=== PATIENT | male | born 1995 | race Caucasian/White ===

== ENCOUNTER 2017-06-11 01:18 | Inpatient (IN) | payer BC ==
[~2017-06-11] VITALS: Ht 175.3 cm; Wt 117.7 kg
--- NOTE | ~2017-06-11 | OR ---
PATIENT'S NAME: ROSENDO RODRIGEZ [facility] AGE: 21 Y [address] ROOM: [address] [address] [place] [facility] [place] DATE: 06/11/2017 OR/Procedure Report DISCHARGE DATE: FAMILY PHYSICIAN: Víctor Kearns MD ATTENDING PHYSICIAN: Rhys GUEVARA SURGEON: Rhys Guevara MD HAND SURGEON: DATE OF PROCEDURE: 06/11/2017 PREOPERATIVE DIAGNOSIS: Acute appendicitis. POSTOPERATIVE DIAGNOSIS: Acute appendicitis with periappendiceal abscess. PROCEDURE PERFORMED: Laparoscopic appendectomy. ANESTHESIA: General endotracheal anesthesia. COMPLICATIONS: None. SPECIMEN: Appendix. ESTIMATED BLOOD LOSS: 10 mL. COUNTS: The sponge and needle count at the end of the case was correct. DESCRIPTION OF PROCEDURE: After informed consent was obtained, the patient was taken to the operating room and intubated. A Alberto catheter was placed. His anterior abdominal wall was sterilely prepped and draped. Surgical time- out was performed. Veress needle technique was used to create a pneumoperitoneum. A 5 mm port and 5 mm camera were placed through the infraumbilical stab incision. No injury to subjacent bowel was identified. A 5 mm suprapubic port and an 11 mm left lower quadrant port were placed under camera visualization. The appendix was identified in the right lower quadrant. There was periappendiceal abscess, which was quite small. This was dissected free using blunt dissection from the abdominal wall and the cecum and the adjacent ligament of Treves. The mesoappendix was divided with a Harmonic scalpel. The base of the appendix was uninvolved with disease and fit to handle suture. The base of the appendix was ligated with PDS Endoloop x2. The appendix was transected with the Harmonic scalpel and extracted through the left lower quadrant port using an EndoCatch bag. Copious irrigation of the pelvis, right lower quadrant, and above the liver was performed. The ports were removed. The fascia of the 11 mm port was closed with vicryl. Monocryl and dermabond were used for all incisions. Drapes were removed. The Alberto catheter was removed. The patient was extubated and taken to the postanesthesia care unit in stable condition. PATIENT'S NAME: ROSENDO RODRIGEZ [facility] AGE: 21 Y [address] ROOM: [address] [address] [place] [facility] [place] DATE: 06/11/2017 OR/Procedure Report DISCHARGE DATE: FAMILY PHYSICIAN: Víctor Kearns MD ATTENDING PHYSICIAN: Rhys GUEVARA RHYS GUEVARA MD CM/luis alberto /[id number] d: 06/11/17740 t: 06/15/17 0731, OPERATIVE SUMMARY
--- NOTE | ~2017-06-11 | ER ---
[facility] AGE[facility] 21 Y [address] ROOM: [place] [address] LOCATION: [facility] ADMIT DATE: 06/11/2017 ER/Outpatient Report DISCHARGE DATE: FAMILY PHYSICIAN: Víctor Kearns MD ATTENDING PHYSICIAN: Jason Thomas Admission date and time are documented in the medical record. I saw the patient at 0130 hours. CHIEF COMPLAINT: Generalized abdominal pain. HISTORY OF PRESENT ILLNESS: The patient is a 21-year-old male, who comes in with generalized abdominal pain, seemed to be worse in the left mid quadrant. He has had the pain for about 2 to 3 days. The pain has been constant. It got worse this morning and brought him into the emergency room for evaluation. He has had multiple diarrhea stools. He has had nausea and vomiting x3 today. No urinary symptomatology. No back pain, chest pain, or shortness of breath. No lightheadedness, dizziness, syncope, or near syncope. No fall or trauma. Other than the abdominal pain, no recent coughs, colds, or flus. Does have a fever, no chills. No headache, eyes, ears, nose, throat, neck, or spine pain. No joint or muscle swelling, redness, or pain. No skin eruptions or rash. No history of neuro changes, psych issues, or endocrine problems. HOME MEDICATIONS: Ibuprofen p.r.n. ALLERGIES: NONE. SOCIAL HISTORY: The patient smokes tobacco, a pack a day. Does use marijuana. Does use alcohol. SIGNIFICANT PAST MEDICAL HISTORY: Asthma, tobacco abuse, and marijuana use. PAST SURGICAL HISTORY: Tonsillectomy and left knee surgery. REVIEW OF SYSTEMS: All systems reviewed by me are negative with the exception of those discussed in the history of present illness. PATIENT'S NAME: ELIA [facility] AGE: 21 Y [address] ROOM: [place] [address] LOCATION: [facility] ADMIT DATE: 06/11/2017 ER/Outpatient Report DISCHARGE DATE: FAMILY PHYSICIAN: Víctor Kearns MD ATTENDING PHYSICIAN: Jason Thomas PHYSICAL EXAMINATION: VITAL SIGNS: Temperature 100.4 tympanic, pulse 90, respirations 18, blood pressure 160/75, O2 saturation on room air is 99%. HEAD: Normocephalic. EYES, EARS, NOSE, AND THROAT: Clear. Mucous membranes moist. Teeth, jaw intact. NECK: No nuchal rigidity. No thyromegaly or cervical adenopathy. Range of motion, full. SPINE: Nontender, no deformity. LUNGS: Clear. Good air flow. No rales, rhonchi, or wheezes. HEART: Regular. Pulses are palpable. ABDOMEN: Nondistended. Soft. Tenderness diffusely, especially in the left mid quadrant. No really true guarding or rigidity. No rebound tenderness. No CVA tenderness. EXTREMITIES: Intact. NEUROVASCULAR: Intact. SKIN: Clear. No skin eruptions or rash. LABORATORY DATA: Urine showed 0-2 whites, 0-2 reds, 0-2 epithelial cells, negative bacteria per high-powered field, negative nitrites. White count was elevated at 15,900, 80 segs, 10 lymphs, 9 monos, 1 EO, hemoglobin is 16.1 with hematocrit of 46.0, and platelet count was 240,000. Pro-time was 11.2 with an INR of 1.07. CMS was normal. Amylase and lipase were normal. CRP was 7.59. Did a CT scan of the abdomen and pelvis with IV contrast that showed acute appendicitis with a small abscess likely containing no more than 2 mm of fluid at the tip of the appendix. CT scan was read by radiologist. See dictated transcribed report. EMERGENCY DEPARTMENT COURSE: I did start the patient on IV normal saline, fluids. Gave him Zofran IV for nausea and vomiting and fentanyl IV for pain. IMPRESSION: Acute appendicitis with small abscess at the tip of the appendix with abdominal pain, nausea, vomiting, diarrhea, and fever. PLAN: I did discuss the patient with Dr. Guevara, surgeon. Dr. Guevara is coming to the emergency room to evaluate the patient. We will take the patient back to operation for appendectomy. Discussion ensued with the patient concerning my findings and recommendations, he understands. PATIENT'S NAME: ROSENDO RODRIGEZ [facility] AGE: 21 Y [address] ROOM: [place] [address] LOCATION: [facility] ADMIT DATE: 06/11/2017 ER/Outpatient Report DISCHARGE DATE: FAMILY PHYSICIAN: Víctor Kearns MD ATTENDING PHYSICIAN: Jason Thomas MD SDS/modl /[id number] d: 06/11/17 0415 t: 06/12/17 1804, OUTPATIENT REPORT
--- NOTE | ~2017-06-11 | DS ---
PATIENT'S NAME: ROSENDO RODRIGEZ [facility] AGE: 21 Y [address] ROOM: [address] [address] LOCATION: [facility] [place] ADMIT DATE: 06/11/2017 Discharge Summary DISCHARGE DATE: 06/17/2017 FAMILY PHYSICIAN: Víctor Kearns MD ATTENDING PHYSICIAN: Rhys Guevara PROCEDURE PERFORMED: Laparoscopic appendectomy. COMPLICATIONS: None. HOSPITAL COURSE: The patient was admitted on June 11 from the emergency department with signs and symptoms and radiographic findings consistent with acute appendicitis with focal perforation and periappendiceal abscess. He was taken to the operating room for laparoscopic appendectomy. He was taken postoperatively to the hospital acosta where he was maintained on IV antibiotics for a period of 6 days. On the 6th day, he was transitioned to oral antibiotics. His white count prior to surgery was 15.9. It peaked at 21.8 the day after surgery and continued to progress down and normalized at 9.1 on June 16, 2017. He was tolerating a regular diet. He was ambulating without difficulties. He was able to have good pain control with oral medications. He was transitioned to oral antibiotics the day before discharge. On the day of discharge June 17, he had very good symptom control and no subjective or recorded fevers. He was discharged to outpatient care. The patient will follow up in 5 to 10 days in the [facility] for wound check and overall evaluation. He will have a CBC drawn prior to that clinic visit. He will be maintained on oral antibiotics for another 7 days. RHYS GUEVARA MD CM/luis alberto /[id number] d: 06/18/17 0008 t: 07/16/17 1438, DISCHARGE SUMMARY
--- NOTE | ~2017-06-11 | HP ---
PATIENT'S NAME: ELIA [facility] AGE: 21 Y [address] ROOM: [place] [address] [place] [facility] [place]: 06/11/2017 History & Physical DISCHARGE DATE: FAMILY PHYSICIAN: Víctor Kearns MD ATTENDING PHYSICIAN: Rhys DA SILVA DATE OF SERVICE: CHIEF COMPLAINT: Abdominal pain. HISTORY OF PRESENT ILLNESS: The patient is a 21-year-old, otherwise healthy male who had a 2-day history of initially periumbilical and then right lower quadrant pain. Pain got progressively worse over the last 24 hours associated with some nausea and vomiting with nonbilious emesis. He had very minimal pain control with oral ibuprofen. He presented to the emergency department with the above symptoms in addition to malaise and anorexia. PAST MEDICAL HISTORY: Significant only for asthma requiring no sustained medications. PAST SURGICAL HISTORY: Include tonsillectomy and a knee scope. ALLERGIES: NONE. SOCIAL HISTORY: He is a former smoker. He smoked for about 3 years at about a pack per day. He does have a history of cannabis use. PHYSICAL EXAMINATION: VITAL SIGNS: The patient has a small temperature elevation to 100.4. GENERAL: He is not tachycardic. He is normotensive. HEENT: Shows multiple facial piercings. NECK: Normal. CARDIAC: Normal. PULMONARY: Normal. ABDOMEN: Shows no surgical scars. He has no ventral wall hernia. He has no organomegaly. He has focal tenderness in the right lower quadrant with a positive McBurney's sign and a positive Rovsing sign. EXTREMITIES: His heel tap is positive. His obturator is negative. His pelvic shake is positive. PATIENT'S NAME: ELIA [facility] AGE: 21 Y [address] ROOM: [place] [id number] [place] [facility] [place]: 06/11/2017 History & Physical DISCHARGE DATE: FAMILY PHYSICIAN: Víctor Kearns MD ATTENDING PHYSICIAN: Rhys DA SILVA LABORATORY DATA: His white count is elevated at 15. His CT scan images and radiology interpretation were reviewed. Of note, it shows findings consistent with appendicitis as well as a small abscess at the tip with a small focus of air within it. This appears to be a contained abscess. There is some apparently reactive free fluid in the pelvis. IMPRESSION: Acute appendicitis with a small tip abscess. PLAN: In discussion with the patient, the plan will be to proceed with laparoscopic appendectomy. This will be followed by inpatient admission. My plan would be to keep him on antibiotics for a little longer course given the presence of the small abscess and the increase likelihood of developing subsequent intraabdominal abscesses. Surgical options include nonoperative management with IV antibiotics, but I think in this case that is the lesser of two options. RHYS DA SILVA MD CM/luis alberto /[id number] D: [id number] T: [id number] HISTORY & PHYSICAL
[2017-06-11 02:08] LABS: BASOPHIL % 0.2 %; EOSINOPHIL # 0.1 K/uL (0.0-0.5); EOSINOPHIL % 0.5 %; HEMOGLOBIN 16.1 g/dL (12.0-17.0); IMMATURE GRANULOCYTE # 0.1 K/uL (0.0-0.3); IMMATURE GRANULOCYTE % 0.4 %; LYMPHOCYTE # 1.6 K/uL (0.8-4.0); LYMPHOCYTE % 9.9 %; MCH 30.7 pg (27.0-34.0); MCV 87.6 fl (83.0-98.0); MONOCYTE # 1.4 K/uL (0.0-1.0); MONOCYTE % 8.6 %; MPV 10.2 fl (9.4-12.4); NEUTROPHIL # (ANC) 12.8 K/uL (1.4-9.0); NEUTROPHIL % 80.4 %; NRBC % 0 /100WBC (0-0.00); PLATELET COUNT 240 K/uL (150-450); RBC 5.25 M/uL (4.00-6.00); RDW-CV 13.4 % (11.9-14.6); WBC 15.9 K/uL (4.0-11.0)
[2017-06-11 02:13] LABS: BILIRUBIN URINE NEGATIVE (NEGATIVE); BLOOD URINE NEGATIVE /UL (NEGATIVE); COLOR URINE YELLOW (YELLOW); GLUCOSE URINE NEGATIVE (NEGATIVE); KETONE URINE NEGATIVE (NEGATIVE); LEUKOCYTES URINE 25 /UL (NEGATIVE); NITRITE URINE NEGATIVE (NEGATIVE); PROTEIN URINE NEGATIVE (NEGATIVE); TURBIDITY URINE CLEAR (CLEAR); UROBILINOGEN URINE NORMAL (NORMAL)
[2017-06-11 02:25] LABS: ALBUMIN 3.6 gm/dL (3.5-5.0); ALK PHOS 100 IU/L (33-138); ALT 26 IU/L (12-78); ANION GAP 11.8 (10.0-19.0); AST 12 IU/L (10-40); BLOOD UREA NITROGEN 7 mg/dL (6-24); CALCIUM 8.9 mg/dL (8.5-10.5); CHLORIDE 105 mMol/L (96-110); CO2 24 mMol/L (22-32); CREATININE 0.8 mg/dL (0.6-1.3); POTASSIUM 3.8 mMol/L (3.7-5.1); SODIUM 137 mMol/L (135-145); TOTAL BILIRUBIN 1.1 mg/dL (0.0-1.5); TOTAL PROTEIN 7.5 g/dL (6.0-8.4)
[2017-06-11 02:28] LABS: INR - (THERAPEUTIC) 1.07 (0.92-1.07); PROTIME 11.2 SECONDS (9.8-11.4)
[2017-06-11 02:44] LABS: BACTERIA URINE NEGATIVE (NEGATIVE); EPITHELIAL URINE 0-2 #/HPF (NEGATIVE); RBC URINE 0-2 #/HPF (NEGATIVE); WBC URINE 0-2 #/HPF (NEGATIVE)
--- NOTE | 2017-06-11 12:10 | NUR ---
Met with patient and mom in the room today. Introduced myself and explained my role with the CM department. Patient and mom were in the bathroom trying to get his nasal piercing back in. Patient was very irritated and annoyed because he had to take it out before surgery. He also is complaining of increase in pain and wanting to go outside to smoke. His mom was irritated because they did not know who his doctor is and because the doctor had not been in to see him yet. Per mom, patient is wanting to go outside so they need the doctor to come in and see him. Mom was irritated with me too. When I introduced myself and my role she said "so what does that mean to us." Patient complained to me about his nurse and his nurse was there in the room at the time. She said that she is not getting him his pain medications. I talked with Blessing and she is fully aware that patient is in pain, but she cannot give him more meds until he comes back to bed and she has finished checking his vitals. Blessing informed him and his mom of this. I informed them that I will continue to follow and assist with discharge planning. Informed them both that I will continue to follow along with his gerald
[2017-06-11] MEDS ORDERED: PROAIR HFA8.5 GM INH (12:36)
--- NOTE | 2017-06-11 16:39 | NUR ---
Significant Event: Patient up to floor at 0830. Family with patient at bedside off and on throughout the day. Patient asking for pain medication on arrival to floor. First tab of percocet given at 0755 in PACU, and 2nd tab of percocet given on MSU at 0851. Patient then given ibuprofen at 1121, and 2 mg morphine and 2 percocet given at 1230 and zofran given at 1240. Patient able to sleep for a while after this and states it helped the pain. Percocet 2 tabs given last at 1622. Patient did ask for morphine with this but nurse wanting to see how percocet did for the pain on it's own. Nurse to check with patient regarding pain control shortly. IV saline locked to L)hand, although patient does get zosyn through it. Patient has been up and ambulated in the halls and up ad nicki in room. Patient wanting to go outside and smoke. Charge nurse explained to patient that for his safety as he had had anesthetic that he needed to stay on the floor. It was further explained that if patient went outside to smoke and went acrossed the street that he would have to leave AMA first. Patient verbalized understanding of this and for the moment is ok with this. Did offer a nicotine patch, but patient declined. Postop vitals complete, and patient is on room air. Lap sites x3 to abdomen sealed with dermabond. Follow up: Continue to monitor.
--- NOTE | 2017-06-11 17:46 | NUR ---
21 Y/O MALE CAME FROM PACU EARLY THIS MORNING AFTER GOING TO THE E.R[facility] LAST NIGHT AND HAVING AN APPY THIS MORNING. PT HAD BEEN HAVING ABDOMINAL PAIN, NAUSEA & VOMIITING FOR THE PAST THREE DAYS WELL SOME LOOSE STOOL. WHEN ADMISSION NURSE ENTERS ROOM, PT IS UP AMBULATING IN THE ROOM DOING WELL. PT IS A&OX3 [facility] MEDICAL & SURGICAL HISTORY - ASTHMA, HX BRONCHITIS, CURRENT EVERYDAY SMOKER OF 1/2 PPD X 4 YEARS. WHEN ASKED PT HISTORY, PT ADMITS TO DRINKING 2 DAYS PER WEEK APPROX 10 DRINKS AT THOSE TIMES & ALSO SMOKES MARIJUANA FREQUENTLY, LAST TIME WAS 06/10/17. PT WEARS GLASSES. FREQUENT HEADACHES & RARE MIGRAINES. SURGERIES INCLUDE T&A A CHILD, DOG BITE ON LEFT SIDE OF FACE WITH A SIGNIFICANT AMOUNT OF SURGICAL REPAIR & PLASTIC SURGERY AT THE AFE OF 7 Y/O, LT MENISCAL TEAR 2017. REPORT GIVEN TO PT PRIMARY CARE NURSE SARA STEINERWOOL CLEANER ADUCATION DONE WITH PT & YIMI
--- NOTE | 2017-06-12 02:10 | NUR ---
SIGNIFICANT EVENT: Patient alert & oriented. VSS on RA. PIV to L) hand infusing intermittent antibiotics. Morphine x1, last at 0128. Pt escorted off floor for fresh air - reminded several times that smoking is not permitted and that if pt decides it is necessary to smoke, will have to leave AMA. Laparoscopic appendectomy on 06/11/17. Ambulates independently. Regular diet. Expresses concerns about leaving tomorrow d/t pain. Pleasant and cooperative with cares.
[2017-06-12 05:06] LABS: BASOPHIL % 0.1 %; EOSINOPHIL # 0.1 K/uL (0.0-0.5); EOSINOPHIL % 0.2 %; HEMATOCRIT 42.1 % (37.0-53.0); HEMOGLOBIN 14.4 g/dL (12.0-17.0); IMMATURE GRANULOCYTE # 0.1 K/uL (0.0-0.3); IMMATURE GRANULOCYTE % 0.5 %; LYMPHOCYTE # 1.9 K/uL (0.8-4.0); LYMPHOCYTE % 8.6 %; MCH 31.2 pg (27.0-34.0); MCHC 34.2 gm/dL (32.0-36.5); MCV 91.1 fl (83.0-98.0); MONOCYTE # 1.3 K/uL (0.0-1.0); NEUTROPHIL # (ANC) 18.4 K/uL (1.4-9.0); NEUTROPHIL % 84.6 %; NRBC % 0 /100WBC (0-0.00); PLATELET COUNT 240 K/uL (150-450); RBC 4.62 M/uL (4.00-6.00); RDW-CV 13.8 % (11.9-14.6)
[2017-06-12 05:08] LABS: WBC 21.8 K/uL (4.0-11.0)
--- NOTE | 2017-06-12 16:27 | NUR ---
AAOx3. Cooperative with cares. Tolerating regular diet. S/L'd w/intermittent Abx. Passing flatus, but no BM. Gave MOM x1 today. If no result by tomorrow, then MOM x1 more. Ambulating independently in halls. Lap sites glued.
--- NOTE | 2017-06-13 04:43 | NUR ---
Significant Event: AAOX3. REG DIET. INDEPENDENT. PIV TO L)HAND IN PLACE AND PATENT WITH IV ZOSYN INFUSING. RUNS TACHY. COMPLAINED OF A HEADACHE AT 0130, IBUPROFEN ADMINISTERED AT 0141, TEMP AT 0145 ASSESSMENT WAS 103.2. TEMP REMAINED SAME AN HOUR LATER. PERCOCET ADMINISTERED FOR HEADACHE AT 0348, TEMP AT THIS TIME WAS 102.2. REMAINED THE SAME AN HOUR LATER. WILL REASSESS TEMP AROUND 0550. HAD TWO BM'S DURING SHIFT. COOPERATIVE WITH CARES. Follow up:
[2017-06-13 05:52] LABS: BASOPHIL % 0.1 %; EOSINOPHIL % 0.1 %; HEMATOCRIT 38.8 % (37.0-53.0); HEMOGLOBIN 13.3 g/dL (12.0-17.0); IMMATURE GRANULOCYTE # 0.2 K/uL (0.0-0.3); IMMATURE GRANULOCYTE % 0.9 %; LYMPHOCYTE # 1.2 K/uL (0.8-4.0); LYMPHOCYTE % 5.4 %; MCH 30.6 pg (27.0-34.0); MCHC 34.3 gm/dL (32.0-36.5); MCV 89.4 fl (83.0-98.0); MONOCYTE # 1.4 K/uL (0.0-1.0); MONOCYTE % 6.5 %; MPV 10.4 fl (9.4-12.4); NEUTROPHIL # (ANC) 18.4 K/uL (1.4-9.0); NRBC % 0 /100WBC (0-0.00); PLATELET COUNT 216 K/uL (150-450); RBC 4.34 M/uL (4.00-6.00); RDW-CV 13.6 % (11.9-14.6); WBC 21.1 K/uL (4.0-11.0)
--- NOTE | 2017-06-13 17:08 | NUR ---
Significant Event: Alert and oriented X 3. Room air. SBP 110's and 120's. HR 80's. Up independent. 1 Gulliver given X 2 for pain of 07/15, last given at 1645. Peripheral IV to left hand, sluggish with flush and patient complains of it hurting. There is no redness or signs of inflammation around insertion site. Changed dressing d/t edges loose. Afebrile during this shift. Cooperative with cares. Follow up:
--- NOTE | 2017-06-14 05:13 | NUR ---
Significant Event: BEGAN CARING FOR PT AT 192. AAOX3. REG DIET. PIV TO LEFT HAND SL, WITH INTERMITTENT ANTIBIOTIC THERAPY. PT WENT OUTSIDE TWICE DURING SHIFT. HAD A SHOWER. RECEIVED MORPHINE AT 0030 FOR COMPLAINTS OF PAIN IN UPPER RIGHT ABD ON SCALE OF 10/10, HE WAS CRYING AND SAID IT HURT WITH EVERY BREATH HE TOOK. ZOFRAN WAS ADMINISTERED AT 0030 BECAUSE THE PAIN WAS MAKING HIM NAUSEATED. NO EMESIS. FEVER 100.2 AT SECOND ASSESSMENT. PERCOCET ADMINISTERED AT 0301 FOR PAIN. WILL REASSESS FEVER. COOPERATIVE WITH CARES. Follow up:
[2017-06-14 06:03] LABS: BASOPHIL % 0.1 %; EOSINOPHIL # 0.1 K/uL (0.0-0.5); EOSINOPHIL % 0.5 %; HEMATOCRIT 36.6 % (37.0-53.0); HEMOGLOBIN 12.3 g/dL (12.0-17.0); IMMATURE GRANULOCYTE # 0.1 K/uL (0.0-0.3); IMMATURE GRANULOCYTE % 0.7 %; LYMPHOCYTE % 6.9 %; MCH 29.8 pg (27.0-34.0); MCHC 33.6 gm/dL (32.0-36.5); MCV 88.6 fl (83.0-98.0); MONOCYTE # 1.3 K/uL (0.0-1.0); MPV 10.3 fl (9.4-12.4); NEUTROPHIL # (ANC) 12.4 K/uL (1.4-9.0); NEUTROPHIL % 82.8 %; NRBC % 0 /100WBC (0-0.00); PLATELET COUNT 208 K/uL (150-450); RBC 4.13 M/uL (4.00-6.00); RDW-CV 13.8 % (11.9-14.6); WBC 14.9 K/uL (4.0-11.0)
--- NOTE | 2017-06-14 16:11 | NUR ---
Significant event: Up in [place] ambulating. Percocet 2 tablets for pain. Afebrile. Bowel sounds hypoactive reports he is passing flatus. Follow-up: Possible dismissal tomorrow.
--- NOTE | 2017-06-15 02:56 | NUR ---
Significant Event: Patient alert and oriented X4. Up ad nicki in room. Showered this shift. IV to L) hand redressed. Running intermittent zosyn. Vitals stable and on room air. Afebrile on 1st assessment. CHecked again around 2320 and was 100.2, enouraged IS and walked in the halls again and was 100.5. Gave percocet and encouraged IS again, recheck an hour later and was 102.3. Placed ice packs in armpits and behind neck, took off blankets etc, temp was still high. Called MD and he said to monitor. Gave morphine per pt and mother request and zofran around 0055, and rechecked temp again and came down to 98.7. Pt currently sleeping. Was supposed to go home today if temps down and WBC down. Ruchi to see in AM. Lap sites X3 with skin glue. AMbulated x3 in halls. Follow up: MOnitor temp
[2017-06-15 04:37] LABS: BASOPHIL % 0.1 %; EOSINOPHIL # 0.1 K/uL (0.0-0.5); HEMATOCRIT 35.2 % (37.0-53.0); IMMATURE GRANULOCYTE # 0.1 K/uL (0.0-0.3); IMMATURE GRANULOCYTE % 0.4 %; LYMPHOCYTE # 1.5 K/uL (0.8-4.0); LYMPHOCYTE % 12.9 %; MCH 30.9 pg (27.0-34.0); MCHC 34.1 gm/dL (32.0-36.5); MCV 90.7 fl (83.0-98.0); MONOCYTE # 1.3 K/uL (0.0-1.0); MONOCYTE % 11.1 %; MPV 9.9 fl (9.4-12.4); NEUTROPHIL # (ANC) 8.6 K/uL (1.4-9.0); NEUTROPHIL % 74.5 %; NRBC % 0 /100WBC (0-0.00); PLATELET COUNT 211 K/uL (150-450); RBC 3.88 M/uL (4.00-6.00); WBC 11.5 K/uL (4.0-11.0)
--- NOTE | 2017-06-15 07:06 | NUR ---
Throughout shift pt spiked fever, refused tylenol and motrin to help decrease fever. Pt stated he only wanted morphine because it worked the night before. Educated pt that morphine would not bring down the fever. Pt was using IS and walking but continued to spike fevers. notified when fever reached 102.3 pt and mother wanted him notified. Nursing staff continued to offer tylenol and motrin and pt conintued to refuse. Pt and mother not satisfied with the suggestions, and cares that were offered and demanded morphine and proceeded to slam room door and yell in the [facility]. Kindly asked pt to behave appropriately out of respect for other pts. Fevers continued and pt demanded morphine again, education provided a second time. When asked what pt wanted morphine for pt stated "I wanted it to sleep." Educated that morphine was not for sleep, and encouarged pt to let percocet kick in. Pt appears to be untruthful at times between staff members.
--- NOTE | 2017-06-15 11:40 | NUR ---
Stopped in briefly to meet with Cassius and his mom. His mom says right away that Cassius cannot sleep because everyone is in here bothering him all the time. I suggested having the nurse put a sign on the door indicating patient is sleeping and his mom said "but it is the nurses that keep coming in, no one else is bothering him." I explained to her that they need to be monitoring him and doing their assessments. She states they have no other needs at this time. Will continue to follow and offer supports.
--- NOTE | 2017-06-15 15:40 | NUR ---
Significant event: Up and ambulating in halls. Percocet 2 tabs twice. Patient requested to leave and smoke, explained this is a no smoking campus and smoking is not healthy and could potentially slow healing. Patient reported he would take a nap and try to calm himself and forget about smoking. Afebrile this shift. Follow-up: daily CBC and continue to monitor temperature.
--- NOTE | 2017-06-16 03:30 | NUR ---
Patient is alert and oriented, VSS, afebrile this shift. Percocets given x2 so far with last at 2330. IV to L) hand has zosyn infusing. Patient states he will have a CT to see if he has an abscess, not sure if that will be today or tomorrow. He has been more pleasant this shift.
[2017-06-16 04:37] LABS: BASOPHIL % 0.2 %; EOSINOPHIL # 0.1 K/uL (0.0-0.5); EOSINOPHIL % 1.3 %; HEMATOCRIT 33.8 % (37.0-53.0); HEMOGLOBIN 11.2 g/dL (12.0-17.0); IMMATURE GRANULOCYTE % 0.4 %; LYMPHOCYTE # 1.5 K/uL (0.8-4.0); LYMPHOCYTE % 16.3 %; MCH 29.6 pg (27.0-34.0); MCHC 33.1 gm/dL (32.0-36.5); MCV 89.2 fl (83.0-98.0); MONOCYTE # 1.2 K/uL (0.0-1.0); MONOCYTE % 12.7 %; MPV 9.8 fl (9.4-12.4); NEUTROPHIL # (ANC) 6.3 K/uL (1.4-9.0); NEUTROPHIL % 69.1 %; NRBC % 0 /100WBC (0-0.00); PLATELET COUNT 222 K/uL (150-450); RBC 3.79 M/uL (4.00-6.00); RDW-CV 14.1 % (11.9-14.6); WBC 9.1 K/uL (4.0-11.0)
--- NOTE | 2017-06-16 09:37 | NUR ---
A - PT SCREENED D/T LOS. S/P APPY. ABD CT PLANNED. NAUSEA - MEDS GIVEN. ABD PAIN. HT: 69" WT: 259# BMI: 38.3. LABS: LIPASE 67, CRP 7.59, HGB/HCT 11.2/33.8. MEDS: ZOSYN, NAUSEA. DIET: REG. INTAKE: REF-75% NEEDS: 9940-2815 KCAL (15-20 KCAL/KG), 118-141 G PRO (1-1.2 G/KG), 2355 ML FLUID (1 ML/KCAL) D - INADEQUATE NUTRIENT INTAKE R/T ALTERED GI FUNCTION AEB INTAKE RECORD, RECENT APPY, ABD PAIN, NAUSEA. I - GOAL FOR INCREASED NUTRIENT INTAKE. WILL ADD ENSURE CLEAR TID TO INC NUTRIENT INTAKE. M/E - WILL MONITOR INTAKE AND GI FUNCTION. F/U IN 3-5 DAYS.
--- NOTE | 2017-06-16 14:24 | NUR ---
Significant Event: Pt c/o intermittent lower abd pain, good relief with Percocet. Up ad nicki. Incision approximated to abd. Had a bm. Received last dose of IV Zosyn, now on oral ATB. Possible dc to home tomorrow. Follow up:
--- NOTE | 2017-06-17 05:11 | NUR ---
Significant Event: A/O X3 AND COOPERATIVE WITH CARES. C/O ABDOMINAL PAIN RATING AT 6-8, GAVE 2 PERCOCET X2 LAST AT 0200 WITH RELIEF NOTED. ON ORAL ANTIBIOTICS. IV TO L) FA FLUSHES WELL. LAP SITES X3. UP AD ARAM. VSS AND AFEBRILE. POSSIBLE DC HOME TODAY. Follow up:
[2017-06-17] MEDS ORDERED: CIPRO500 MG PO (10:15)
[2017-06-17] MEDS ORDERED: FLAGYL500 MG PO (10:16)
[2017-06-17] MEDS ORDERED: PERCOCET 5-3251 EACH PO (10:18)
--- NOTE | 2017-06-17 11:25 | NUR ---
Significant Event: Pt up ad nicki. Percocet given this am. Incisions to abd d/i. dc to home at 1120, drove self home but has not had narcotics for 4 hrs and said that was ok. States understanding of all dc instructions and meds. Pt belongings sent with him. Follow up:
== END 2017-06-17 11:20 | disposition disaster alternative care site (69) | DRG 340 ==
LOC: GMED 01:18 → GMSU 03:50
PROVIDERS: Emergency Medicine; Physician Assistant; ADMIT Surgery
PROC: 0DTJ4ZZ Resection of Appendix, Percutaneous Endoscopic Approach (ICD-10-PCS; principal; 2017-06-11)
DX: K35.3 Acute appendicitis with localized peritonitis (principal); Z87.891 Personal history of nicotine dependence
CPT/HCPCS: J2270; J2405; J2543; J3010; J7030; J7050; Q9967